=== PATIENT | female | born 1955 | race Caucasian/White ===

== ENCOUNTER → 2021-04-07 12:57 | Outpatient (CLI) | payer MEDICARE, SELFPAY ==
--- NOTE | 2021-04-07 13:06 | BI_ITS ---
MAMMOGRAPHY - BILATERAL SCREENING REASON FOR EXAM: Female, 66 years old. Routine annual screening examination. PERTINENT HISTORY: Non-contributory. TECHNIQUE: Digital bilateral breast bernarda (3D mammographic acquisition) in the CC and MLO projections. 2-D mediolateral oblique (MLO) and craniocaudad (CC) views of both breasts were obtained. CAD: Full Field Digital Mammography with Computer Added Detection was performed. COMPARISON: Comparison is made with prior outside examination of 03/10/2020. FINDINGS: Breast Composition: There are scattered areas of fibroglandular density. There are no dominant masses or suspicious calcifications. Stable benign-appearing bilateral axillary nodes. No other significant abnormalities are identified. There has been no significant change since the prior study. BI/SCRN MAMM (CAD)W/BERNARDA BILAT IMPRESSION: Stable bilateral screening mammogram. Yearly follow-up mammogram recommended. (A) ASSESSMENT CATEGORY: BIRADS Category 2: Benign. A letter regarding these results will be sent to the patient by the facility within 30 days. Approximately 10% of breast cancers are not detected by mammography. A normal mammogram should not delay biopsy of a clinically suspicious abnormality. [id number] Electronically Signed: Fabiano Gomez MD at 14:44 EDT , Service support ,
--- NOTE | 2021-04-07 13:10 | BD_ITS ---
STUDY: DUAL ENERGY X-RAY ABSORPTIOMETRY / DXA REASON FOR EXAM: Female, 66 years old. 627.8Menopausal postmenopausalBONE DENSITY REASON FOR EXAM TECHNIQUE: Bone Mineral Density (BMD) measurements of lumbar spine and bilateral hips were obtained. COMPARISON: None. FINDINGS: Lumbar Spine (L1-L4): g/cm2 (0.877) / T-score (-1.5) / Z-score (0.2) Findings are suggestive of osteopenia with a low fracture risk. Left Femur Total: g/cm2 (0.731) / T-score (-1.7) / Z-score (-0.5) Left Femoral Neck: g/cm2 (0.525) / T-score (-2.9) / Z-score (-1.4) Right Femur Total: g/cm2 (0.751) / T-score (-1.6) / Z-score (-0.3) Right Femoral Neck: g/cm2 (0.601) / T-score (-2.2) / Z-score (-0.7) BD/Dexa Bone Density Study IMPRESSION: The patient is considered osteoporotic as outlined below according to World [employer] Organization (WHO) criteria with a high fracture risk. Reference Information: The T-score is the number of standard deviations above or below the standard which is normal for young adults at their peak bone mineral density. The World Health Organization (WHO) interprets the T-scores as follows: Above -1 Normal bone density Between -1 and -2.5 Osteopenia Equal to / or below -2.5 Osteoporosis As a practical clinical guideline, osteopenia may be graded as follows: Mild -1 through -1.5 Moderate -1.6 through -2.0 Severe -2.1 through -2.4 The Z-score is the number of standard deviations above or below age-matched controls. A Z-score of less than -1.5 would be considered abnormal. References: 1. NIH Osteoporosis and Related Bone Diseases www osteo.org 2. International Society for Clinical Densitometry www iscd.org 3. National Osteoporosis Foundation www nof.org Electronically Signed: Fabiano Gomez MD at 8:17 EDT , Service support ,
== END ==
PROVIDERS: PCP Internal Medicine; Referring Provider Internal Medicine; Visit Provider Internal Medicine
DX: M81.0 Age-related osteoporosis without current pathological fracture (principal); Z12.31 Encounter for screening mammogram for malignant neoplasm of breast
CPT/HCPCS: 77063; 77067; 77080

== ENCOUNTER → 2023-03-04 | Outpatient (CLI) | payer MEDICARE, SELFPAY ==
--- NOTE | 2023-03-04 09:35 | BI_ITS ---
MAMMOGRAPHY - BILATERAL SCREENING REASON FOR EXAM: Female, 68 years old. Routine annual screening examination. PERTINENT HISTORY: Non-contributory. Remote left needle breast biopsy. TECHNIQUE: Digital bilateral breast bernarda (3D mammographic acquisition) in the CC and MLO projections. 2-D mediolateral oblique (MLO) and craniocaudad (CC) views of both breasts were obtained. CAD: Full Field Digital Mammography with Computer Added Detection was performed. COMPARISON: Comparison is made with prior study dated April 07, 2021. FINDINGS: Breast Composition: There are scattered areas of fibroglandular density. There are no dominant masses or suspicious calcifications. Stable benign-appearing bilateral axillary lymph nodes. No other significant abnormalities are identified. There has been no significant change since the prior study. BI/SCRN MAMM (CAD)W/BERNARDA BILAT IMPRESSION: Stable bilateral screening mammogram. Yearly follow-up mammogram recommended. (A) ASSESSMENT CATEGORY: BIRADS Category 2: Benign. A letter regarding these results will be sent to the patient by the facility within 30 days. Approximately 10% of breast cancers are not detected by mammography. A normal mammogram should not delay biopsy of a clinically suspicious abnormality. [id number] Electronically Signed: Fabiano Gomez MD at 10:38 EDT ,
== END | disposition home or self-care (01) ==
LOC: OPBI 09:34
PROVIDERS: PCP Internal Medicine; Referring Provider Internal Medicine; Visit Provider Internal Medicine
DX: Z12.31 Encounter for screening mammogram for malignant neoplasm of breast (principal)
CPT/HCPCS: 77063; 77067

== ENCOUNTER → 2023-03-10 | Outpatient (CLI) | payer MEDICARE, SELFPAY ==
[2023-03-10 15:30] LABS: Absolute Neutrophil Count 4.4 X10^3/uL (2.0-7.7); Basophil# 0.03 X10^3/uL; Basophil% 0.4 % (0-1); Eosinophil# 0.14 X10^3/uL; Eosinophils% 1.8 % (0-5); Hematocrit 38.4 % (37-47); Hemoglobin 12.6 g/dL (12.0-15.0); Lymphocyte % 27.5 % (19-41); Mean Corp Hgb Conc 32.8 g/dL (32-36); Mean Corpuscular Hgb 29.4 pg (27.0-32.0); Mean Corpuscular Volume 89.5 fL (81-99); Mean Platelet Vol. 10.5 fl (6.2-12.0); Monocyte# 0.89 X10^3/uL; Monocyte% 11.7 % (0-10); NRBC Flagged by Analyzer 0 % (0-5); Neutrophil # 4.44 X10^3/uL (2.7-7.7); Neutrophil % 58.2 % (47-70); Platelet Count 234 K/mm3 (150-450); RBC Distribution Width CV 12.1 % (11.6-14.6); Red Blood Count 4.29 M/mm3 (4.2-5.4); White Blood Count 7.6 K/mm3 (4.4-11.0)
[2023-03-10 15:54] LABS: ALB/GLOB Ratio 1.1 RATIO (0.9-2.4); AST(SGOT) 17 U/L (15-37); Alanine Aminotransfer ALT/SGPT 29 U/L (13-56); Albumin, Serum 3.9 g/dL (3.2-5.0); Alkaline Phosphatase 60 U/L (45-117); Anion Gap 2 (5-15); BUN 19 mg/dL (7-18); BUN/Creat Ratio 24.1 RATIO (10-20); Calcium,Total 9.5 mg/dL (8.5-10.1); Chloride 106 mmol/L (98-107); Creatinine, Serum 0.79 mg/dL (0.55-1.02); EST Glomerular Filtration Rate 77 mL/min (>60); Est Glom Filt Rate - Afr Amer 94 mL/min (>60); Globulin 3.5 g/dL (2.2-4.2); Glucose 83 mg/dL (74-106); Potassium 4.4 mmol/L (3.5-5.1); Protein, Total 7.4 g/dL (6.4-8.2); Sodium Level 136 mmol/L (136-145); Thyroid Stim Hormone (TSH) 1.22 uIU/mL (0.358-3.74); Troponin-I HS 7 pg/mL (3.0-54.0)
== END | disposition home or self-care (01) ==
LOC: LABSPEC 15:20
PROVIDERS: PCP Internal Medicine; Referring Provider Internal Medicine; Visit Provider Internal Medicine
DX: I20.0 Unstable angina (principal)
CPT/HCPCS: 80053; 84443; 84484; 85025

== ENCOUNTER → 2023-04-21 | Outpatient (CLI) | payer MEDICARE, SELFPAY ==
--- NOTE | 2023-04-21 13:01 | ECHOD_ITS ---
Reason For Study: MURMUR Procedure This was a 2D Doppler, Color Flow transthoracic echocardiogram. Exam performed in department. Left Ventricle Mild concentric left ventricular hypertrophy. The left ventricular ejection fraction is 65 %. Diastolic function is indeterminate. Right Ventricle Normal right ventricle. Atria The left and right atria are normal. Mitral Valve Moderate diffuse mitral valve thickening. Moderate mitral annular calcification. Trivial mitral valve insufficiency. Tricuspid Valve Mild tricuspid valve insufficiency. Normal pulmonary artery pressure. Aortic Valve Moderate diffuse aortic valve calcification. Severe aortic valve stenosis by Doppler criteria. Mean peak gradient 43.8 mmHg. Mild (1+) aortic valve insufficiency. Pulmonic Valve The pulmonic valve is not well visualized. Trivial pulmonic valve insufficiency. Great Vessels Normal sized aortic root. Pericardium/Pleural No pericardial effusion. MMode/2D Measurements & Calculations LVIDd: 3.6 cm IVSd: 1.2 cm LVOT diam: 2.3 cm LVIDs: 2.0 cm LVPWd: 1.0 cm LVOT area: 4.1 cm2 FS: 45.6 % Ao root diam: 3.2 cm LAV(MOD-bp): 61.3 ml LVAd ap4: 20.7 cm2 LAV(MOD-bp) Indexed: 34.8 ml/m2 LVLd ap4: 7.1 cm LAV(MOD-sp2): 42.7 ml EDV(MOD-sp4): 53.0 ml LAV(MOD-sp4): 76.4 ml EDV(sp4-el): 51.0 ml LVAs ap4: 11.2 cm2 LVLs ap4: 5.6 cm ESV(MOD-sp4): 21.7 ml ESV(sp4-el): 18.9 ml EF(MOD-sp4): 59.1 % EF(sp4-el): 63.0 % SV(MOD-sp4): 31.3 ml SV(sp4-el): 32.2 ml LA A4 area: 22.6 cm2 LA dimension(2D): 2.9 cm RA A4 area: 10.4 cm2 TAPSE: 3.4 cm Time Measurements MV dec time: 0.20 sec Doppler Measurements & Calculations MV E max mele: 72.6 cm/sec Lat Peak E' Mele: 7.4 cm/sec Med Peak E' Mele: 4.0 cm/sec MV A max mele: 109.0 cm/sec E/E' lat: 9.8 E/E' med: 17.9 MV E/A: 0.67 MV V2 max: 121.1 cm/sec Ao V2 max: 414.4 cm/sec MV max P.9 mmHg MV dec slope: 392.3 cm/sec2 Ao max P.8 mmHg MV V2 mean: 75.1 cm/sec Ao V2 mean: 314.8 cm/sec MV mean P.6 mmHg Ao mean P.8 mmHg MV V2 VTI: 23.6 cm Ao V2 VTI: 101.9 cm AI max mele: 431.4 cm/sec TR max mele: 239.3 cm/sec AI max P.4 mmHg TR max P.9 mmHg AI dec slope: 217.7 cm/sec2 AI P1/2t: 580.4 msec ECHO/Echo Complete Interpretation Summary Mild concentric left ventricular hypertrophy. The left ventricular ejection fraction is 65 %. Diastolic function is indeterminate. Moderate mitral annular calcification. Severe aortic valve stenosis. Mean peak gradient 43.8 mmHg. Mild (1+) aortic valve insufficiency. Ordering Physician: Carmel Thomas Referring Physician: Carmel Thomas Performed By: Stephy Arroyo RCS
== END | disposition home or self-care (01) ==
LOC: CVS 13:00
PROVIDERS: PCP Internal Medicine; Referring Provider Internal Medicine; Visit Provider Internal Medicine
DX: R01.1 Cardiac murmur, unspecified (principal)
CPT/HCPCS: 93306

== ENCOUNTER 2023-08-02 15:44 | Emergency (ER) | payer MEDICARE, SELFPAY ==
[2023-08-02 15:45] VITALS: BP 134/78; PULSE 64; RESP 14; TEMP 36.4; O2SAT 98; BMI 27.7
--- NOTE | 2023-08-02 16:24 | EDS_ITS ---
HPI History of Present Illness Chief Complaint: Nosebleed Informant: patient Onset/Context/Timing Onset: Today Context: Sudden Onset Timing: Continuous Quality: Red blood Location: Right nares Worsened by: Nothing Relieved by: Nothing Narrative Narrative: Patient presents with epistaxis that began today. Patient states that she has had several episodes over the past several days but today she was unable to get it stopped. Patient states it is mainly coming from the right nares. Patient states it was bright red blood. Patient denies any trauma or injury. Patient states she is on Coumadin for recent aortic valve replacement and one-vessel CABG. Patient denies any lightheadedness or dizziness. Patient denies any fevers or chills. Patient was told mild sore throat which she attributes to the blood going down the back of her throat. Patient denies any cough. PFSH PFS Medical History (Updated 08/02/23 @ 18:[address] Epifanio Adams DO) Coronary artery disease Hx of valvular heart disease Allergy/AdvReac Type Severity Reaction Status Date / Time No Known Allergies Allergy Verified 08/02/23 15:44 Family History no significant family his Surgical History (Updated 08/02/23 @ 16:[address] Epifanio Adams DO) Hx of aortic valve replacement Hx of CABG Social History household members: spouse Smoking Status: Never smoker ROS ROS ED Constitutional Constitutional ED: Denies chills or fever(s) Eyes Eyes: Denies blurry vision or change in vision ENT ENT ED: Denies rhinorrhea or sore throat Cardiovascular Cardiovascular: Denies chest pain or palpitations Respiratory/Chest Respiratory/Chest: Denies cough or dyspnea Gastrointestinal Gastrointestinal: Denies nausea or vomiting Genitourinary Genitourinary ED: Denies dysuria or hematuria Musculoskeletal Musculoskeletal: Denies back pain or neck pain Integumentary Denies abscess or rash Neurologic Neurologic: Denies headache(s) or weakness Allergic/Immunologic Allergic/Immunologic ED: Denies mouth swelling or urticaria EXAM Physical Exam Const Vital Signs: 08/02/23 15:45 Temperature 97.6 F L Temperature Source Temporal Pulse Rate 64 Respiratory Rate 14 Blood Pressure 134/78 H Blood Pressure Mean 96 Pulse Ox 98 Oxygen Delivery Method Room Air Positive well nourished and well developed General Appearance ED: well developed and NAD HEENT Reports moist mucous membranes HEENT Narrative: There is no septal deviation or septal hematoma. There is some bleeding from the right anterior nasal septum. There is no pulsatile bleeding noted. Oropharynx shows some mild postnasal bleeding. There is no erythema. There are no exudates noted. Eyes PERRL and EOMs intact bilaterally Neck supple and no JVD Neuro oriented x3, CN's II-XII intact bilaterally and no sensory deficits noted Sensorium / Orientation: alert Motor Exam: strength 5/5 throughout Psych mental status grossly normal MDM MDM MDM Narrative Medical decision making narrative: Since the patient is on Coumadin, PT with INR will be checked to assess for coagulopathy. CBC will be obtained to assess for anemia. History & Record Review Additional record(s) reviewed:: Prior labs Lab Data Attestation: I reviewed the patient's lab results. Lab results narrative: CBC was reviewed. There is a mild anemia with a hemoglobin of 10.9 and hematocrit 33.8. Pro time was 22.6 and INR is 2.0. Labs: Laboratory Results - last 24 hr 08/02/23 16:42 WBC 8.4 RBC 3.81 L Hgb 10.9 L Hct 33.8 L MCV 88.7 MCH 28.6 MCHC 32.2 RDW Std Deviation 41.2 RDW Coeff of Cesilia 12.8 Plt Count 246 MPV 9.9 Immature Gran % (Auto) 0.400 Neut % (Auto) 58.8 Lymph % (Auto) 27.1 [place] % (Auto) 10.8 H Eos % (Auto) 2.4 Baso % (Auto) 0.5 Absolute Neuts (auto) 4.9 Absolute Lymphs (auto) 2.27 Nucleated RBC % 0 PT 22.6 H INR 2.0 Treatment and Re-Evaluation :: Nasal clip was applied. Cottonball soaked with Deloris solution were placed in the right nares. Patient blew her nose and was able to expel a large clot. There is some friable mucosa on the anterior nasal septum. There is minimal bleeding. A 5.5 cm anterior rapid Rhino nasal pack was applied to the right nares. Patient tolerated the procedure well. The balloon was inflated. Courtney ent had no further bleeding. Patient was given referral for ENT. Patient was instructed to follow-up in 3 to 5 days. Patient was instructed to continue her Coumadin as prescribed. Patient and spouse understood and were agreeable with the plan. All questions were answered. Discharge Plan Triage Chief Complaint: Nosebleed ED Provider: Epifanio Adams Dx/Rx/DC Orders Clinical Impression: Anterior epistaxis Instructions: ED Epistaxis (Adult) Primary Care Provider: Carmel Thomas Referrals: Lit Lee MD [Med Staff - Active Staff] - 2 Days Carmel Thomas DO [Primary Care Provider] - 5-7 Days Disposition Disposition: Home, Self Care
[2023-08-02 16:49] LABS: Absolute Lymphocyte Count 2.27 X10^3/uL (0.83-4.51); Absolute Neutrophil Count 4.9 X10^3/uL (2.0-7.7); Basophil# 0.04 X10^3/uL; Basophil% 0.5 % (0-1); Eosinophils% 2.4 % (0-5); Hematocrit 33.8 % (37-47); Hemoglobin 10.9 g/dL (12.0-15.0); Lymphocyte # 2.27 X10^3/ul (0.83-4.51); Lymphocyte % 27.1 % (19-41); Mean Corp Hgb Conc 32.2 g/dL (32-36); Mean Corpuscular Hgb 28.6 pg (27.0-32.0); Mean Corpuscular Volume 88.7 fL (81-99); Mean Platelet Vol. 9.9 fl (6.2-12.0); Monocyte# 0.91 X10^3/uL; Monocyte% 10.8 % (0-10); NRBC Flagged by Analyzer 0 % (0-5); Neutrophil # 4.94 X10^3/uL (2.7-7.7); Neutrophil % 58.8 % (47-70); Platelet Count 246 K/mm3 (150-450); RBC Distribution Width CV 12.8 % (11.6-14.6); RBC Distribution Width SD 41.2 fl (35.1-43.9); Red Blood Count 3.81 M/mm3 (4.2-5.4); White Blood Count 8.4 K/mm3 (4.4-11.0)
[2023-08-02 17:01] LABS: Prothrombin Time (Protime)PT. 22.6 SECONDS (11.7-14.9)
[2023-08-02] MEDS: Mixture 30 ML Bottle TOPICAL (18:08)
== END 2023-08-02 18:55 | disposition home or self-care (01) ==
PROVIDERS: Emergency Provider Emergency Medicine; PCP Internal Medicine; Visit Provider Emergency Medicine
DX: R04.0 Epistaxis (principal); I25.10 Atherosclerotic heart disease of native coronary artery without angina pectoris
CPT/HCPCS: 30901; 85025; 85610; 99283; A4216

== ENCOUNTER → 2024-04-10 | Outpatient (CLI) | payer MEDICARE, SELFPAY ==
--- NOTE | 2024-04-10 10:47 | BI_ITS ---
MAMMOGRAPHY - BILATERAL SCREENING REASON FOR EXAM: Female, 69 years old. Routine annual screening examination. PERTINENT HISTORY: Non-contributory. History of prior left needle biopsy. TECHNIQUE: Digital bilateral breast bernarda (3D mammographic acquisition) in the CC and MLO projections. 2-D mediolateral oblique (MLO) and craniocaudad (CC) views of both breasts were obtained. CAD: Full Field Digital Mammography with Computer Added Detection was performed. COMPARISON: Comparison is made with prior study March 04, 2023 and April 07, 2021. FINDINGS: Breast Composition: There are scattered areas of fibroglandular density. There are no dominant masses or suspicious calcifications. Stable small benign-appearing bilateral axillary lymph nodes. No other significant abnormalities are identified. There has been no significant change since the prior study. BI/SCRN MAMM (CAD)W/BERNARDA BILAT IMPRESSION: Stable bilateral screening mammogram. Yearly follow-up mammogram recommended. (A) ASSESSMENT CATEGORY: BIRADS Category 2: Benign. A letter regarding these results will be sent to the patient by the facility within 30 days. Approximately 10% of breast cancers are not detected by mammography. A normal mammogram should not delay biopsy of a clinically suspicious abnormality. [id number] Electronically Signed: Fabiano Gomez MD at 12:10 EDT ,
== END | disposition home or self-care (01) ==
LOC: OPBI 10:47
PROVIDERS: PCP Internal Medicine; Referring Provider Internal Medicine; Visit Provider Internal Medicine
DX: Z12.31 Encounter for screening mammogram for malignant neoplasm of breast (principal)
CPT/HCPCS: 77063; 77067

== ENCOUNTER → 2024-08-09 | Outpatient (CLI) | payer MEDICARE, SELFPAY ==
--- NOTE | 2024-08-09 13:46 | CDU_ITS ---
Reason For Study: Carotid Stenosis Rt. Velocities/BP Lt. Velocities/BP Prox CCA 68.6/13.8 cm/sec. Prox CCA 58.8/14.7 cm/sec. Mid CCA 63.9/16.6 cm/sec. Mid CCA 52.4/12.5 cm/sec. Dist CCA 61.0/15.7 cm/sec. Dist CCA 47.4/13.9 cm/sec. Prox ICA 50.8/14.1 cm/sec. Prox ICA 50.2/20.4 cm/sec. Mid ICA 44.0/14.7 cm/sec. Mid ICA 52.6/21.6 cm/sec. Dist ICA 68.3/19.2 cm/sec. Dist ICA 107.0/37.6 cm/sec. Rt. ICA/CCA = 1.1. Lt. ICA/CCA = 2.0. Prox ECA 92.5/20.0 cm/sec. Prox ECA 70.5/16.6 cm/sec. Rt. Vert. 45.9/11.0 cm/sec. Lt. Vert. 35.3/11.1 cm/sec. Right Extracranial There is intimal thickening but no significant atherosclerotic plaque noted in the right common carotid artery. There is heterogeneous, irregular atherosclerotic plaque noted in the right internal carotid artery. There is intimal thickening but no significant atherosclerotic plaque noted in the right external carotid artery. Antegrade flow is noted in the right vertebral artery. Left Extracranial There is intimal thickening but no significant atherosclerotic plaque noted in the left common carotid artery. There is heterogeneous, irregular atherosclerotic plaque noted in the left internal carotid artery. The atherosclerotic plaque causes acoustic shadowing. There is heterogeneous, irregular atherosclerotic plaque noted in the left external carotid artery. Antegrade flow is noted in the left vertebral artery. VL/Carotid Duplex Ultrasound Interpretation Summary Mild (<50%) stenosis right extracranial internal carotid. Mild (<50%) stenosis left extracranial internal carotid. Flow within the vertebral arteries is antegrade bilaterally. Ordering Physician: Carmel Thomas Referring Physician: Carmel Thomas Performed By: Philippe Lawson RVT
== END | disposition home or self-care (01) ==
LOC: CVS 13:45
PROVIDERS: PCP Internal Medicine; Referring Provider Internal Medicine; Visit Provider Internal Medicine
DX: I65.23 Occlusion and stenosis of bilateral carotid arteries (principal)
CPT/HCPCS: 93880

== ENCOUNTER → 2025-04-11 | Outpatient (CLI) | payer MEDICARE, SELFPAY ==
--- NOTE | 2025-04-11 09:59 | BD_ITS ---
PROCEDURE: DEXA BONE DENSITY STUDY 04/11/2025 REASON FOR EXAM: F, age 70 y/o . Postmenopausal. TECHNIQUE: Procedure Code: BDDBD Modality: DX Procedure: DEXA BONE DENSITY STUDY COMPARISON: April 07, 2021. FINDINGS: BMD and T-SCORES Lumbar spine: 0.859 g/cm2, T-score -1.4 Levels: L1 through L4 Change from prior: Loss of 3.7%. Left femoral neck: 0.518 g/cm2, T-score -3.0 Femoral neck comparison data not recommended for monitoring change. Left total hip: 0.692 g/cm2, T-score -2.1 Change from prior: Loss of 5.3%. Right femoral neck: 0.571 g/cm2, T-score -2.5 Femoral neck comparison data not recommended for monitoring change. Right total hip: 0.736 g/cm2, T-score -1.7 Change from prior: Loss of 2%. The World Health Organization has defined the following categories based on bone density: Normal bone density: T-score equal to or greater than -1.0 Osteopenia: T-score between -1.0 and -2.5 Osteoporosis: T-score equal to or less than -2.5 FRAX (or Comparable) Fracture Risk Assessment: 10 Year Probability of Fracture: Major Osteoporotic Fracture: 26% Hip Fracture: 7.2% (Note: FRAX is not to be reported in setting of normal range bone density, osteoporosis on DEXA, known history of osteoporosis, prior osteoporotic hip or vertebral fracture, or for any patient undergoing pharmacological treatment for bone loss.) The National Osteoporosis Foundation (NOF) recommends pharmacological treatment for patients with a FRAX 10-year risk of 3% or higher for a hip fracture, or 20% or higher for a major osteoporotic fracture, to prevent osteoporosis and reduce fracture risk. The patient does meet the pharmacological treatment recommendations for prevention of osteoporosis. BD/Dexa Bone Density Study IMPRESSION: OSTEOPOROSIS. Recommend follow-up as clinically warranted. Reading Location: [place] [id number]
--- NOTE | 2025-04-11 10:30 | BI_ITS ---
EXAM: SCRN MAMM (CAD)W/BERNARDA BILAT DATE: 04/11/2025 CLINICAL HISTORY: F, Age 70 y/o , SCREENING No family history. History of prior left breast needle biopsy. TECHNIQUE: Procedure Code: [id number] Modality: MG Procedure: SCRN MAMM (CAD)W/BERNARDA BILAT COMPARISON: Prior exam(s) dated April 10, 2024.. FINDINGS: TISSUE DENSITY: The breasts are heterogeneously dense, which may obscure small masses. Bilateral Breast Mammographic Findings: There is a 7 mm nodular density in the slightly lateral deep central portion of the left breast. The patient will be recalled for additional views including 90 degree lateral and compression spot views. BI/SCRN MAMM (CAD)W/BERNARDA BILAT IMPRESSION: 7 mm nodular density in the slightly lateral deep central portion of the left b reast as described. The patient will be recalled for additional views including 90 degree lateral and compression spot views. OVERALL FINAL ASSESSMENT BI-RADS 0: INCOMPLETE - NEED ADDITIONAL IMAGING EVALUATION. RECOMMENDATION: Additional Views obtained/call backs A letter with findings and recommendations will be mailed to the patient. Reading Location: [place] [id number]
== END | disposition home or self-care (01) ==
LOC: OPBD 09:58
PROVIDERS: PCP Internal Medicine; Referring Provider Internal Medicine; Visit Provider Internal Medicine
DX: Z12.31 Encounter for screening mammogram for malignant neoplasm of breast (principal); M81.0 Age-related osteoporosis without current pathological fracture
CPT/HCPCS: 77063; 77067; 77080

== ENCOUNTER → 2025-04-15 | Outpatient (CLI) | payer MEDICARE, SELFPAY ==
--- NOTE | 2025-04-15 13:00 | US_ITS ---
PROCEDURE: BREAST LIMITED UNILATERAL 04/15/2025 REASON FOR EXAM: F, Age 70 y/o , ABN MAMM - NODULE COMPARISON: Prior mammogram done earlier in the day.. TECHNIQUE: Procedure Code: USBRSTLIMIT Modality: US Procedure: BREAST LIMITED UNILATERAL FINDINGS: The mammographic abnormality corresponds to a 3 mm x 3 mm x 4 mm irregular hypoechoic nodule with posterior acoustical shadowing at the 12 o'clock position of the breast at 9 cm from the nipple. Biopsy recommended. US/Breast Limited Unilateral IMPRESSION: 3 mm x 3 mm x 4 mm irregular hypoechoic nodule with posterior acoustical shadow ing at the 12 o'clock position of the breast at 9 cm from the nipple. Biopsy recommended. BI-RADS 4: SUSPICIOUS RECOMMENDATION: Biopsy Recommended Reading Location: [place] [id number]
--- NOTE | 2025-04-15 13:00 | BI_ITS ---
EXAM: DIAG MAMM W/CAD, UNILAT 04/15/2025 CLINICAL HISTORY: F, Age 70 y/o , ABN MAMM - NODULE TECHNIQUE: Procedure Code: [id number] Modality: MG Procedure: DIAG MAMM W/CAD, UNILAT.. Compression spot views of the left breast were obtained. COMPARISON: Prior exam(s) dated April 11, 2025. FINDINGS: TISSUE DENSITY: There are scattered areas of fibroglandular density. Bilateral Breast Mammographic Findings: Questionable persistent 7 mm nodular density in the upper lateral aspect of the left breast. Targeted sonographic correlation recommended. BI/DIAG MAMM W/CAD, UNILAT IMPRESSION: Findings suggestive of persistent 7 mm nodular density in the upper lateral asp ect of the left breast. Sonographic correlation recommended. OVERALL FINAL ASSESSMENT BI-RADS 0: INCOMPLETE - NEED ADDITIONAL IMAGING EVALUATION. RECOMMENDATION: Ultrasound Recommended Additional Recommendation none A letter with findings and recommendations will be mailed to the patient. Reading Location: [place] [address]
== END | disposition home or self-care (01) ==
PROVIDERS: PCP Internal Medicine; Referring Provider Internal Medicine; Visit Provider Internal Medicine
DX: R92.8 Other abnormal and inconclusive findings on diagnostic imaging of breast (principal)
CPT/HCPCS: 76642; 77061; 77065; G0279

== ENCOUNTER → 2025-05-01 | Outpatient (CLI) | payer MEDICARE, SELFPAY | END | disposition home or self-care (01) | PROVIDERS: PCP Internal Medicine; Referring Provider Surgery; Visit Provider Surgery | DX: D24.2 Benign neoplasm of left breast (principal); N60.92 Unspecified benign mammary dysplasia of left breast; R92.0 Mammographic microcalcification found on diagnostic imaging of breast | CPT/HCPCS: 19083; 77065; 88305 ==

== ENCOUNTER 2025-05-29 06:26 | Day surgery (SDC) | payer MEDICARE, SELFPAY ==
--- NOTE | 2025-05-23 15:40 | PAT.ANESEVAL ---
Pre-Assessment Diagnosis/Proposed Procedure Planned Operative Procedure(s): STEROTACTIC WIRE LOCALIZED LEFT BREAST LUMPECTOMY Anesthesia History Anesthesia History - manager systems: Anesthesia History - manager systems Hx Hospitalization No 05/23/25 08:24 Any Problems With Anesthesia No 05/23/25 08:24 Cholinesterase deficiency No 05/23/25 08:24 You/Your Family Experience No 05/23/25 08:24 fever (hyperthermia) with Relationship Recent Exposure to Contagious Disease Does patient have nerve No 05/23/25 08:24 stimulator Patient instructed to have device shut off --Does patient have Pacemaker or ICD? When Was Last Pacemaker Check QUESTION #4 FULL TEXT: You/Your Family Experience fever (hyperthermia) with Anesthesia Last Oral Intake Last Oral intake: Last Oral Intake NPO since Meds taken in AM with sips of water? Meds patient instructed to take am of surgery PONV PONV - manager systems: PONV - manager systems Female Yes 05/23/25 08:24 HX of Motion Sickness No 05/23/25 08:24 HX of N/V After Surgery No 05/23/25 08:24 Non-Smoker Yes 05/23/25 08:24 Duration of Surgery greater Yes 05/23/25 08:24 than 60 minutes Number of Risk Factors 3 05/23/25 08:24 PONV Score Moderate Risk 05/23/25 08:24 Height & Weight Height & Weight: Anesthesia: Height & Weight Height 5 ft 3 in 05/20/25 10:13 Respiratory Assessment Respiratory Assessment - manager systems: Respiratory Tract Infection Hx - manager systems Hx Respiratory Tract Infection No 05/23/25 08:24 STOP Sleep Apnea STOP Sleep Apnea - manager systems: STOP Sleep Apnea - manager systems Hx Hypertension Yes: CONTROLLED WITH MED 05/23/25 08:24 Hx Sleep Apnea No 05/23/25 08:24 CPAP BIPAP Do you snore loudly (louder No 05/23/25 08:24 than talking or can be heard Do you often feel tired/ No 05/23/25 08:24 fatigued/ sleepy during daytime? Has anyone observed you stop No 05/23/25 08:24 breathing during sleep? STOP Results Negative 05/23/25 08:24 QUESTION #5 FULL TEXT : Do you snore loudly (louder than talking or can be heard through closed doors)? 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 Specify any problems Hx of Preganancy in last 3 No 05/23/25 08:24 Months Nurse Filling Out Transfusion DSCHRIBER 05/23/25 08:24 & Questions: Date: 05/23/25 05/23/25 08:24 Time: 08:26 05/23/25 08:24 Patient unable to answer at this time (ie. confused, unrespo /Reproduction History /Reproductive History - manager systems: /Reproductive Hx- manager systems Hx Now No 05/23/25 08:24 Gestational Age (in weeks): EDC: Hx Hx Para Hx Section SAB No 05/23/25 08:24 PFS Medical History (Updated 05/23/25 @ 08:35 by Deanne Caceres) Wears glasses Depression Anxiety Thyroid disease Post-menopausal GERD (gastroesophageal reflux disease) Non-smoker Hx of echocardiogram Cardiology follow-up encounter HTN (hypertension) Irregular heartbeat Hx of valvular heart disease Coronary artery disease Home Medications ?Medication ?Instructions ?Recorded ?Last Taken ?Type Saccharomyces boulardii 250 mg 250 mg PO DAILY 04/19/25 Unknown History capsule (Daily Probiotic (S. boulardii)) atorvastatin 40 mg tablet (Lipitor) 40 mg PO QDAY 04/19/25 Unknown History bupropion HCl 150 mg 24 hr tablet, 150 mg PO BID 04/19/25 Unknown History extended release (Wellbutrin XL) cholecalciferol (vitamin D3) 25 25 mcg PO QDAY 04/19/25 Unknown History mcg (1,000 unit) capsule cranberry fruit concentrate 250 mg 250 mg PO QDAY 04/19/25 Unknown History chewable tablet (Azo Cranberry) ibandronate 150 mg tablet 150 mg PO QMONTH 04/19/25 Unknown History levothyroxine 88 mcg capsule 88 mcg PO QDAY 04/19/25 Unknown History loratadine 10 mg tablet (Claritin) 10 mg PO QDAY 04/19/25 Unknown History metoprolol tartrate 25 mg tablet 25 mg PO BID 04/19/25 Unknown History omeprazole 20 mg capsule,delayed 20 mg PO QDAY 04/19/25 Unknown History release aspirin 81 mg tablet,delayed 81 mg PO QHS 05/23/25 Unknown History release (Adult Aspirin Regimen) calcium carbonate 1,200 mg PO DAILY 05/23/25 Unknown History duloxetine 30 mg capsule,delayed 30 mg PO QHS 05/23/25 Unknown History release glucosamine sulfate 500 mg tablet 500 mg PO DAILY 05/23/25 Unknown History (Glucosamine) omega 6-gaq-xqv-fish oil 1,000 mg 1 cap PO DAILY 05/23/25 Unknown History (120 mg-180 mg) capsule Allergy/AdvReac Type Severity Reaction Status Date / Time adhesive tape (tape) Allergy Intermediate Other Verified 05/23/25 08:16 diazepam (From Valium) Allergy Intermediate Other Verified 05/23/25 08:16 Family History (Updated 04/19/25 @ 14:18 by Mariluz Briceño) Mother Diabetes Surgical History (Updated 05/23/25 @ 08:35 by Deanne Caceres) H/O cardiac catheterization Hx of colonoscopy Hx of breast surgery Hx of aortic valve replacement Hx of CABG Social History household members: spouse Smoking Status: Never smoker Audit: Pertinent Findings Pertinent Findings EKG Perinent findings: 06/10/2023. Sinus rhythm. Nonspecific intraventricular conduction delay Echo (EF%) pertinent findings: 04/21/2023. EF is 65%. Normal PA pressure. Severe aortic stenosis by Doppler criteria. Mean peak gradient is 43.8 mmHg. June 2023. Normal functioning bioprosthetic aortic valve in place. Heart catheterization pertinent findings: 06/08/2023. 1. Left ventricle with ejection fraction of 50 to 55%. Mild hypokinesis of the anterior lateral and apical myocardium. 2. Aortic valve?severe stenosis. 3. LAD?proximal lesion is 95% stenosed. 4. First diagonal ostial lesion is 90% stenosis. Consult pertinent findings: 01/18/2024. Dr. Vital?cardiology. 1. Coronary artery disease?status post ESTRADA to the LAD in May 2023. Denies angina. Continue aspirin and atorvastatin. 2. Aortic valve stenosis-status post AVR with Inspiris aortic valve in May 2023. 3. Hypertension?controlled. Continue metoprolol. Recommendation Anesthesia Recommendation Anesthesia recommendation: OPTIMIZED for anesthesia
[2025-05-29] VITALS (10 sets, daily range): BP systolic 114–149; BP diastolic 69–90; PULSE 59–68; RESP 14–16; TEMP 36.1–36.4; O2SAT 92–100; BMI 26.9
[2025-05-29] MEDS: Lactated Ringers 1,000 ML 15 ML IV (07:20)
--- NOTE | 2025-05-29 08:00 | BI_ITS ---
EXAM: BI/Breast Biopsy Specimen
--- NOTE | 2025-05-29 08:17 | PCM.HP.STD ---
HPI - General General Date of Admission: 05/29/25 Date of Service: 05/29/25 HPI Narrative LINWOOD PRATER, is a 70 F who presents left breast biopsy. she had recent imaging that showed an abnormality. Biopsy was performed and revealed an intraductal papilloma. Excisional biopsy was recommended [facility] Medical History (Updated 05/23/25 @ 08:35 by Deanne Caceres) Wears glasses Depression Anxiety Thyroid disease Post-menopausal GERD (gastroesophageal reflux disease) Non-smoker Hx of echocardiogram Cardiology follow-up encounter HTN (hypertension) Irregular heartbeat Hx of valvular heart disease Coronary artery disease Home Medications ?Medication ?Instructions ?Recorded ?Last Taken ?Type Saccharomyces boulardii 250 mg 250 mg PO DAILY 04/19/25 05/24/25 History capsule (Daily Probiotic (S. boulardii)) atorvastatin 40 mg tablet (Lipitor) 40 mg PO QDAY 04/19/25 05/28/25 History bupropion HCl 150 mg 24 hr tablet, 150 mg PO BID 04/19/25 05/29/25 History extended release (Wellbutrin XL) cholecalciferol (vitamin D3) 25 25 mcg PO QDAY 04/19/25 Unknown History mcg (1,000 unit) capsule cranberry fruit concentrate 250 mg 250 mg PO QDAY 04/19/25 05/24/25 History chewable tablet (Azo Cranberry) ibandronate 150 mg tablet 150 mg PO QMONTH 04/19/25 05/25/25 History levothyroxine 88 mcg capsule 88 mcg PO QDAY 04/19/25 05/29/25 History loratadine 10 mg tablet (Claritin) 10 mg PO QDAY 04/19/25 05/24/25 History metoprolol tartrate 25 mg tablet 25 mg PO BID 04/19/25 05/29/25 History omeprazole 20 mg capsule,delayed 20 mg PO QDAY 04/19/25 05/29/25 History release aspirin 81 mg tablet,delayed 81 mg PO QHS 05/23/25 05/24/25 History release (Adult Aspirin Regimen) calcium carbonate 1,200 mg PO DAILY 05/23/25 05/24/25 History duloxetine 30 mg capsule,delayed 30 mg PO QHS 05/23/25 05/24/25 History release glucosamine sulfate 500 mg tablet 500 mg PO DAILY 05/23/25 05/24/25 History (Glucosamine) omega 3-ock-xiw-fish oil 1,000 mg 1 cap PO DAILY 05/23/25 05/24/25 History (120 mg-180 mg) capsule Allergy/AdvReac Type Severity Reaction Status Date / Time adhesive tape (tape) Allergy Intermediate Other Verified 05/29/25 07:04 diazepam (From Valium) Allergy Intermediate Other Verified 05/29/25 07:04 Family History (Updated 04/19/25 @ 14:18 by Mariluz Briceño) Mother Diabetes Surgical History (Updated 05/24/25 @ 14:00 by Deanne Caceres) H/O cardiac catheterization Hx of colonoscopy Hx of breast surgery Hx of aortic valve replacement Hx of CABG Social History household members: spouse Smoking Status: Never smoker Vital Signs Vital Signs Vital Signs: 05/29/25 07:10 05/29/25 07:10 Temperature 97.5 F L Temperature Source Temporal Pulse Rate 59 L Respiratory Rate 16 Respiratory Pattern Normal Blood Pressure 147/81 H Blood Pressure Mean 103 Blood Pressure Source Monitor Blood Pressure Position Supine Blood Pressure Location Left Arm Pulse Ox 100 Oxygen Delivery Method Room Air Weight Weight: 152 lb 1.903 oz Body Mass Index (BMI) 26.9 Physical Exam Const alert, oriented x3 and no apparent distress Assessment & Plan Assessment/Plan (1) Intraductal papilloma: (2) Abnormal mammogram: PLAN: Plan Wire localized lumpectomy planned for today. The details of procedure reviewed Charges/Coding Visit Charges Inpatient E&M: 63173 Init Hosp L2
--- NOTE | 2025-05-29 08:39 | PCM.PRE.AN2 ---
ASA Classification* ASA Classification ASA Classification: 3 (See cardiac hx. s/p AVR , HTN, GERD, depression, hypothyroidism, CAD ) Assessment & Plan Anesthesia* Anesthesia Assessment Anesthesia Assessment: Discussed sedation and/or anesthesia options, risks, benefits, and alternatives with patient/parents/legal guardian/POA. Questions invited. The patient/parents/legal guardian/POA seems to understand and agrees to proceed with anesthesia plan. Reviewed the physical assessment, medical history, allergy history and patient home medications list prior to surgery/procedure/anesthetic and documented any changes. Performed airway and anesthesia risk assessments. Anesthesia Type Anesthesia Type: General History Source History Obtained from:: Patient and Chart Anesthesia Focused Assessment* Temperature: 97.5 F Pulse Rate: 59 Blood Pressure: 147/81 Respiratory Rate: 16 Pulse Ox: 100 Oxygen Delivery Method: Room Air Airway Assessment Mouth opens: >3 cm Mallampati Score: II Teeth Condition: Intact Neck Range of motion (ROM): Full ROM Labs Anesthesia Preop lab: CBC WBC, (4.4-11.0) 8.4 K/mm3 08/02/23, 16:42 RBC, (4.2-5.4) 3.81 M/mm3 L 08/02/23, 16:42 Hgb, (12.0-15.0) 10.9 g/dL L 08/02/23, 16:42 Hct, (37-47) 33.8 % L 08/02/23, 16:42 Plt Count, (150-450) 246 K/mm3 08/02/23, 16:42 CHEMISTRY Potassium, (3.5-5.1) 4.4 mmol/L 03/10/23, 15:24 Sodium, (136-145) 136 mmol/L 03/10/23, 15:24 BUN, (7-18) 19 mg/dL H 03/10/23, 15:24 Creatinine, (0.55-1.02) 0.79 mg/dL 03/10/23, 15:24 Glucose, (74-106) 83 mg/dL 03/10/23, 15:24 TSH, (0.358-3.74) 1.22 uIU/mL 03/10/23, 15:24 COAG PT, (11.7-14.9) 22.6 SECONDS H 08/02/23, 16:42 Pre-Assessment Diagnosis/Proposed Procedure Planned Operative Procedure(s): STEROTACTIC WIRE LOCALIZED LEFT BREAST LUMPECTOMY Anesthesia History Anesthesia History - group care worker: Anesthesia History - group care worker Hx Hospitalization No 05/23/25 08:24 Any Problems With Anesthesia No 05/23/25 08:24 Cholinesterase deficiency No 05/23/25 08:24 You/Your Family Experience No 05/23/25 08:24 fever (hyperthermia) with Relationship Recent Exposure to Contagious No 05/29/25 07:10 Disease Does patient have nerve No 05/23/25 08:24 stimulator Patient instructed to have device shut off --Does patient have Pacemaker No 05/29/25 07:10 or ICD? When Was Last Pacemaker Check QUESTION #4 FULL TEXT: You/Your Family Experience fever (hyperthermia) with Anesthesia Last Oral Intake Last Oral intake: Last Oral Intake NPO since 22:30 05/29/25 07:10 Meds taken in AM with sips of Yes 05/29/25 07:10 water? Meds patient instructed to see chart 05/29/25 07:10 take am of surgery PONV PONV - group care worker: PONV - group care worker Female Yes 05/23/25 08:24 HX of Motion Sickness No 05/23/25 08:24 HX of N/V After Surgery No 05/23/25 08:24 Non-Smoker Yes 05/23/25 08:24 Duration of Surgery greater Yes 05/23/25 08:24 than 60 minutes Number of Risk Factors 3 05/23/25 08:24 PONV Score Moderate Risk 05/23/25 08:24 Height & Weight Height & Weight: Anesthesia: Height & Weight Height 5 ft 3 in 05/29/25 07:10 Weight: 69 kg 05/29/25 07:10 Body Mass Index (BMI) 26.9 05/29/25 07:10 Respiratory Assessment Respiratory Assessment - group care worker: Respiratory Tract Infection Hx - group care worker Hx Respiratory Tract Infection No 05/23/25 08:24 STOP Sleep Apnea STOP Sleep Apnea - group care worker: STOP Sleep Apnea - group care worker Hx Hypertension Yes: CONTROLLED WITH MED 05/23/25 08:24 Hx Sleep Apnea No 05/23/25 08:24 CPAP BIPAP Do you snore loudly (louder No 05/23/25 08:24 than talking or can be heard Do you often feel tired/ No 05/23/25 08:24 fatigued/ sleepy during daytime? Has anyone observed you stop No 05/23/25 08:24 breathing during sleep? STOP Results Negative 05/23/25 08:24 QUESTION #5 FULL TEXT : Do you snore loudly (louder than talking or can be heard through closed doors)? Tobacco Use History Tobacco Use History - group care worker: Tobacco Use History - group care worker Tobacco Use Smoking Status Never smoker 05/23/25 08:24 Hx Tobacco Use No 05/23/25 08:24 Years Smoking Packs Smoked per Day Smoking Cessation Date was within the last 15 years Hx Smoking Cessation Date Hx Smoking Cessation Counseling Hematologic Medial History Hematologic Hx - group care worker: Hematologic Medical Hx - clinical documentation specialist Hx of Blood Transfusion No 05/23/25 08:24 Hx of Transfusion in last 3 No 05/23/25 08:24 Months Date of Last Transfusion (if within last 3 months) Ever experience any problems No 05/23/25 08:24 with transfusion(s)? Specify any problems Hx of Preganancy in last 3 No 05/23/25 08:24 Months Nurse Filling Out Transfusion DSCHRIBER 05/23/25 08:24 & Questions: Date: 05/23/25 05/23/25 08:24 Time: 08:26 05/23/25 08:24 Patient unable to answer at this time (ie. confused, unrespo /Reproduction History /Reproductive History - group care worker: /Reproductive Hx- group care worker Hx Now No 05/23/25 08:24 Gestational Age (in weeks): EDC: Hx Hx Para Hx Section SAB No 05/23/25 08:24 Active Medications Active Medications: Current Medications Generic Name Dose Route Start Last Admin Trade Name Freq PRN Reason Stop Dose Admin Lactated Ringer's 1,000 mls @ 15 mls/hr 05/29/25 06:45 05/29/25 07:20 IV 15 mls/hr .Q48H MISHA Administration PFSH Medical History (Updated 05/23/25 @ 08:35 by Deanne Caceres) Wears glasses Depression Anxiety Thyroid disease Post-menopausal GERD (gastroesophageal reflux disease) Non-smoker Hx of echocardiogram Cardiology follow-up encounter HTN (hypertension) Irregular heartbeat Hx of valvular heart disease Coronary artery disease Home Medications ?Medication ?Instructions ?Recorded ?Last Taken ?Type Saccharomyces boulardii 250 mg 250 mg PO DAILY 04/19/25 05/24/25 History capsule (Daily Probiotic (S. boulardii)) atorvastatin 40 mg tablet (Lipitor) 40 mg PO QDAY 04/19/25 05/28/25 History bupropion HCl 150 mg 24 hr tablet, 150 mg PO BID 04/19/25 05/29/25 History extended release (Wellbutrin XL) cholecalciferol (vitamin D3) 25 25 mcg PO QDAY 04/19/25 Unknown History mcg (1,000 unit) capsule cranberry fruit concentrate 250 mg 250 mg PO QDAY 04/19/25 05/24/25 History chewable tablet (Azo Cranberry) ibandronate 150 mg tablet 150 mg PO QMONTH 04/19/25 05/25/25 History levothyroxine 88 mcg capsule 88 mcg PO QDAY 04/19/25 05/29/25 History loratadine 10 mg tablet (Claritin) 10 mg PO QDAY 04/19/25 05/24/25 History metoprolol tartrate 25 mg tablet 25 mg PO BID 04/19/25 05/29/25 History omeprazole 20 mg capsule,delayed 20 mg PO QDAY 04/19/25 05/29/25 History release aspirin 81 mg tablet,delayed 81 mg PO QHS 05/23/25 05/24/25 History release (Adult Aspirin Regimen) calcium carbonate 1,200 mg PO DAILY 05/23/25 05/24/25 History duloxetine 30 mg capsule,delayed 30 mg PO QHS 05/23/25 05/24/25 History release glucosamine sulfate 500 mg tablet 500 mg PO DAILY 05/23/25 05/24/25 History (Glucosamine) omega 2-pme-ghm-fish oil 1,000 mg 1 cap PO DAILY 05/23/25 05/24/25 History (120 mg-180 mg) capsule Allergy/AdvReac Type Severity Reaction Status Date / Time adhesive tape (tape) Allergy Intermediate Other Verified 05/29/25 07:04 diazepam (From Valium) Allergy Intermediate Other Verified 05/29/25 07:04 Family History (Updated 04/19/25 @ 14:18 by Mariluz Briceño) Mother Diabetes Surgical History (Updated 05/24/25 @ 14:00 by Deanne Caceres) H/O cardiac catheterization Hx of colonoscopy Hx of breast surgery Hx of aortic valve replacement Hx of CABG Social History household members: spouse Smoking Status: Never smoker Review of Systems (Anesthesia) ROS Narrative System reviewed and no additional complaints, except as documented. Physical Exam Const alert, oriented x3 and average body habitus Resp normal respiratory effort, normal air movement and clear to auscultation bilaterally Cardio regular rate, regular rhythm, no murmurs and diaphoretic
--- NOTE | 2025-05-29 08:45 | OP.PCM_ITS ---
Procedures Integumentary
--- NOTE | 2025-05-29 08:45 | PCM.OPRPT ---
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 Pathology came back benign however an intraductal papilloma was also encountered. We discussed performing a more formal excision. We discussed the details of the planned procedure and she wished to proceed. Patient was brought to the mammography suite today following informed consent. She was then placed prone on the stereotactic table. The left breast was then suspended through the aperture and the table. Dam Operator views were obtained until the clip was clearly identified in the left breast. We came in from a lateral direction. The clip from the recent biopsy was encountered. 2 stereotactic views were obtained, and these were used to target upon the site. The stereo wire was then inserted after prepping the skin and injecting local anesthetic. It was easily inserted to the desired depth. Images were then obtained and showed the wire to be in satisfactory location. The needle was extracted while the wire was held in place. Another series of images were obtained and showed the tip of the wire to be in satisfactory location. The wire was then clipped and a dressing was then applied. She was then taken from the prone table. Post procedure mammograms were then performed and this again showed satisfactory position of the wire. It did seem that the wire did migrate outward a bit but still within very close proximity to the targeted location. Patient tolerated this procedure well. She was then transported to preop holding area Surgical Findings: Successful left breast localization wire placement Complications Complications: No Admit VTE Documentation VTE Present on Admission: No VTE Mechan Device Prophylaxis: None VTE Pharm Prophylaxis ordered?: No Reason prophylaxis not ordered: Treatment Not Indicated
--- NOTE | 2025-05-29 09:00 | BREAST_PTH ---
PATIENT: LINWOOD PRATER LOC: [facility] [place] U#:[id number] AGE/SX: 70/F ROOM: RE05/29/[address]: Dr. Geoff Barclay MD : [id number] BED: DIS: 05/29/2025 SPEC #: [id number] RECD: 05/29/25 10:05 STATUS: CAITLYN REDesi #: [id number] BRYAN: 05/29/25 09:[address]: Geoff Barclay DEPT: SURGICAL PATHOLOGY RECD BY: Ronen Bronson ENTERED: 05/29/25 13:53 SP TYPE: BREAST OTHR DR: Dr. Carmel Thomas DO Tissues: A - Left breast, NOS Procedures: Immunohistochemical Stains Surgery Specimen Level V IHC Stain ADDITIONAL HEADER OPERATION: Stereo wire localization left breast, lumpectomy PRE-OP DIAGNOSIS: Intraductal papilloma, abnormal mammogram TISSUE SUBMITTED: A- Left breast tissue *long tag - lateral, short tag - superior* MICROSCOPIC DIAGNOSIS A. Left breast, stereotactic wire localization, lumpectomy: - Benign breast tissue with fibrocystic mastopathy and benign proliferative changes including adenosis with microcalcifications, sclerosing adenosis, fibroadenomatoid change, dilated ducts, apocrine metaplasia, usual ductal hyperplasia (UDH), intraductal papillomas, and columnar cell hyperplasia. - No malignant change identified. - Biopsy site with reactive changes. - IHC for CK5/6 and p40 support the diagnosis. MICROSCOPIC DESCRIPTION Slides are reviewed. All matched controls reacted appropriately. These tests were developed and their performance characteristics determined by [facility]. They may not have been cleared or approved by the U.[place]. Food and Drug Administration. The FDA has determined that such clearance or approval is not necessary. The above immunohistochemical markers and/or special?stains have been reviewed by the Pathologist. GROSS DESCRIPTION A. Received fresh labeled with the patient's name and date of . Designated as left breast tissue is a 8.0 x 4.1 x 2.8 cm lumpectomy with an exposed localization wire on the anterior aspect. There is a short suture designated as superior and a long suture designated as lateral. Skin is present, 2.3 x 0.9 cm. The specimen is inked as follows: Superior: RedInferior: BlueMedial: YellowLateral: OrangeAnterior: GreenPosterior: Black The specimen is serially sectioned from anterior to posterior (into 12 slices) revealing smith-yellow, fibrofatty cut surfaces (20% fibrotic, 80% fatty) with a 0.2 cm cyst in slice #10. There is a 1.1 x 0.5 x 0.4 cm biopsy site spanning slices #2-#4 with surrounding, yellow discoloration (suspicious for fat necrosis). A biopsy clip is identified within the biopsy cavity in slice #3. There is a 0.8 x 0.7 x 0.4 cm smith-pink, lobulated, rubbery mass, contiguous with a biopsy site in slice #5. The mass is located the following distances from each margin: Anterior: >3 cmInferior: 0.8 cmMedial: 1.0 cmLateral: 2.7 cmPosterior: >3 cmSuperior: 0.7 cm Review of postoperative imaging confirms the presence of a localization wire and a biopsy clip. Scientific Programmer Analyst sections are submitted, sequentially from anterior (slice #1) to posterior (slice #12), to include the entirety of the biopsy site and mass as follows: A1: Slice #1, anterior with skin, perpendicular (inked green)A2: Slice #2, biopsy site to superior/medial/inferior (red/yellow/blue)A3: Slice #3, biopsy site to superior/medial (red/yellow)A4: Slice #4, biopsy site to superior/medial/inferior (red/yellow/blue)A5: Slice #4, fibrosis adjacent to biopsy site, to superior/lateral/inferior, perpendicular (red/orange/blue)A6: Slice #5, mass to superior/medial/inferior (red/yellow/blue)A7: Slice #5, superior/lateral/inferior margins (red/orange/blueA8: Slice #10, cyst to lateral (orange)A9: Slice #12, posterior, perpendicular (black) Cold ischemic time: 10 minutesFormalin fixation time: 9 hours, 20 minutes DE 05/29/2025PT:[id number]
[2025-05-29] MEDS: Bupiv/Epi 0.25% 30 ML Vial (09:33)
--- NOTE | 2025-05-29 10:21 | DCINST_ITS ---
Discharge Instructions
--- NOTE | 2025-05-29 10:21 | PCM.OPRPT ---
Problems Associated Problem List Diagnoses (1) Intraductal papilloma: Procedures Integumentary [id number]: [id number] Partial mastectomy Operative Report (Standard) Operative Information Date of Procedure: 05/29/25 Pre-Operative Diagnosis: Left breast intraductal papilloma Post-Operative Diagnosis: Same Surgery/Procedure Performed: Left breast stereo wire localized lumpectomy service technician: Yes Finger Grip Machine Operator: [place] Tasks completed by family and divorce legal assistant: Closing and Retracting Additional food and nutrition services assistant?: No Type of Anesthesia: General and Local RN Documented Start/Stop Times: Operation Date: 05/29/25 09:00 Case Time Into Pre-Op 05/29/25 06:37 Anesthesia Start 05/29/25 09:00 Into Room 05/29/25 09:00 Out of Pre-Op 05/29/25 09:00 Procedure Start 05/29/25 09:34 Procedure End 05/29/25 10:19 Procedure Start Time: 09:34 Procedure Stop Time: 10:19 Select all DRAINS/GRAFTS/IMPLANTS that apply: None Estimated Blood Loss: 10 mL Fluids Replaced: None Specimen collected: Yes Description of specimen(s) removed: Left breast tissue with marking clip and stereotactic wire Description of surgery: The patient is a 70-year-old female who presented with an abnormal mammogram and ultrasound of my office recently. Ultrasound-guided biopsy was performed. Pathology came back as indicating an intraductal papilloma. We discussed formal surgical excision. We discussed details of the planned procedure including risk benefits and alternatives and she wished to proceed. This was set up as a stereotactic wire localized lumpectomy. The stereo wire was placed earlier today. Please see separate dictation for that portion of the procedure. She was then brought to the operating room later this morning following informed consent. She was placed supine on the operative table with arms outstretched and arm boards. A general LMA anesthesia was induced. Once adequately sedated the left breast was prepped and draped in the usual sterile manner. Great care was taken to avoid manipulation of the wire. Once adequately prepped and draped, a marking pen was then used to indicate the location of the planned ellipse incision around the entry point of the guidewire. Local anesthetic was then infiltrated into this vicinity. A #15 blade was then used to make the skin incision. Bovie electrocautery was then used to dissect down through the subtendinous tissues. This was performed following the path of the wire. Once the extent of the wire was reached, this was dissected little bit further and then excised. The specimen was oriented such the long stitch patrick the lateral aspect and a short stitch patrick the superior aspect of the specimen. This specimen was then sent to radiology to be radiographed. This radiograph did indeed show of the marking clip from the recent biopsy within the tissue specimen. The specimen was then sent to pathology for permanent section. Hemostasis was excellent. A few areas were cauterized to ensure excellent hemostasis. The wound was then copiously irrigated. The incision was then closed with 3-0 Vicryl and then later 4-0 Vicryl was run the skin. Skin glue was then applied as dressing. 4 x 4's and a postop bra was also applied. She was awakened from anesthesia and taken to recovery in good condition Surgical Findings: Successful left breast lumpectomy Complications Complications: No Admit VTE Documentation VTE Present on Admission: No VTE Mechan Device Prophylaxis: SCD's VTE Pharm Prophylaxis ordered?: No Reason prophylaxis not ordered: Treatment Not Indicated
--- NOTE | 2025-05-29 10:21 | EX.PCM.DISCH ---
Discharge Instructions Diet Discharge Diet: Light diet - advance as tolerated Activity May shower in (days): 1 Ice area for (Minutes): 30 Dressing / Incision Call your doctor if your incision/area has: Continuous Slow Oozing, Sudden Increased Bleeding, Increased Pain/ Swelling, Increased Redness, Foul Smelling Discharge and Swelling at the incision site Call your doctor if you observe: Fever of 101 or Higher Cleanse incision/area with: Soap & Water Follow Up Care Please Follow Up With: Geoff Barclay MD When: 2 weeks. Please call office to schedule appointment Test Results: Test results from this visit will be discussed in further detail at your follow-up appointment, if applicable. Discharge Plan Admission Primary Reason for Your Visit: Left breast biopsy Attending Provider: Geoff Barclay Primary Care Provider: Carmel Thomas Instructions Print Language: Nepalese Discharge Orders/Prescriptions Prescriptions: New oxycodone 5 mg tablet 5 mg PO Q8H PRN (Reason: pain) 4 Days Qty: 10 0RF Continued atorvastatin [Lipitor] 40 mg tablet 40 mg PO QDAY omeprazole 20 mg capsule,delayed release(DR/EC) 20 mg PO QDAY loratadine [Claritin] 10 mg tablet 10 mg PO QDAY cholecalciferol (vitamin D3) 25 mcg (1,000 unit) capsule 25 mcg PO QDAY bupropion HCl [Wellbutrin XL] 150 mg tablet extended release 24 hr 150 mg PO BID Saccharomyces boulardii [Daily Probiotic (S. boulardii)] 250 mg capsule 250 mg PO DAILY metoprolol tartrate 25 mg tablet 25 mg PO BID ibandronate 150 mg tablet 150 mg PO QMONTH levothyroxine 88 mcg capsule 88 mcg PO QDAY Azo Cranberry 250 mg tablet,chewable 250 mg PO QDAY duloxetine 30 mg capsule,delayed release(DR/EC) 30 mg PO QHS glucosamine sulfate [Glucosamine] 500 mg tablet 500 mg PO DAILY Rx Instructions: administer with a meal calcium carbonate 600 mg calcium (1,500 mg) tablet 1,200 mg PO DAILY omega 5-[id number]-khh-fish oil 1,000 (120-180) mg capsule 1 cap PO DAILY aspirin [Adult Aspirin Regimen] 81 mg tablet,delayed release (DR/EC) 81 mg PO QHS Referrals / Follow Up: Carmel Thomas DO [Primary Care Provider, Internal Medicine] Disposition Disposition (needs filled in before D/C Order can be placed): Home, Self Care
--- NOTE | 2025-05-29 10:46 | POSTOP.ANE_ITS ---
Anesthesia: Postop Eval I
--- NOTE | 2025-05-29 10:46 | PCM.POST.ANE ---
Anesthesia: Postop Eval I Current Vital Signs Temperature: 97 F Pulse Rate: 68 Blood Pressure: 149/83 Respiratory Rate: 14 Pulse Ox: 97 Oxygen Delivery Method: Room Air Assessment Airway patent: Yes Spontaneous unlabored respirations: Yes Mental status: Asleep nausea: No Vomiting: No Anesthesia Complication: No Fluid Hydration Crystalloid volume administer (ml): 1,200 Total IV fluid infused: 1,200 Progress Note Anesthesia document: Postop Eval 1 completed: Yes
--- NOTE | 2025-05-29 11:02 | POSTOPAN2_ITS ---
Anesthesia Postop Eval I Sum
--- NOTE | 2025-05-29 11:02 | PCM.POSTANE2 ---
Anesthesia Postop Eval I Sum Postop Eval Completion status Anesthesia document: Postop Eval 1 completed: Yes Anesthesia Postop Eval I Summary Anesthesia Postop Eval I Summary: Anesthesia Postop Eval I: Assessment Summary Airway patent Yes 05/29/25 10:47 [email or web address] Spontaneous unlabored Yes 05/29/25 10:47 [email or web address] respirations Mental status Asleep 05/29/25 10:47 [email or web address] nausea No 05/29/25 10:47 [email or web address] Vomiting No 05/29/25 10:47 [email or web address] Anesthesia Postop Eval I: Fluid Summary Crystalloid volume administer 1,200 05/29/25 10:47 [email or web address] (ml) Colloids volume administered ( ml) Blood Product volume administered (ml) Total IV fluid infused 1,200 05/29/25 10:47 [email or web address] Anesthesia Postop Eval I: Summary Notes Anesthesia Complication No 05/29/25 10:47 [email or web address] Anesthesia Complication Comment: Post-operative progress note Anesthesia: Postop Eval II Evaluation Mental status: Awake Pain Level: 0 nausea: No Vomiting: No Complications Anesthesia Complication: No
== END 2025-05-29 12:36 | disposition home or self-care (01) ==
LOC: SDC 06:27 → AC 06:28
PROVIDERS: PCP Internal Medicine; Referring Provider Surgery; Visit Provider Surgery
PROC: (CPT 19301; principal; 2025-05-29 08:45)
DX: I25.10 Atherosclerotic heart disease of native coronary artery without angina pectoris (principal); D24.2 Benign neoplasm of left breast; I10 Essential (primary) hypertension; K21.9 Gastro-esophageal reflux disease without esophagitis; Z79.899 Other long term (current) drug therapy; Z79.890 Hormone replacement therapy; E03.9 Hypothyroidism, unspecified; R92.8 Other abnormal and inconclusive findings on diagnostic imaging of breast; N60.12 Diffuse cystic mastopathy of left breast; N60.22 Fibroadenosis of left breast
CPT/HCPCS: 19301; 19283; 00404; 19281; 76098; 88307; 88341; 88342; A4648; J2405